=== PATIENT | female | born 1960 | race African-American/Black ===

== ENCOUNTER → 2020-09-05 | Emergency (ER) | payer OTHER ==
[~2020-09-05] VITALS: Ht 162.6 cm; Wt 91.6 kg
[~2020-09-05] MED LIST: PEPCID40 MG PO; ZOFRAN4 MG PO; [UNRECOGNIZED DRUG - OTHER]
== END | disposition home or self-care (01) ==
LOC: ER 01:02
DX: K29.60 Other gastritis without bleeding (principal); Z99.2 Dependence on renal dialysis

== ENCOUNTER 2020-12-05 10:16 | Emergency (ER) | payer OTHER ==
[~2020-12-05] VITALS: Ht 162.6 cm; Wt 91.6 kg
== END 2020-12-05 15:42 | disposition home or self-care (01) ==
LOC: ER 10:16
DX: E11.22 Type 2 diabetes mellitus with diabetic chronic kidney disease (principal); N18.6 End stage renal disease; Z99.2 Dependence on renal dialysis; R11.2 Nausea with vomiting, unspecified

== ENCOUNTER 2021-01-26 09:06 | Emergency (ER) | payer OTHER ==
[~2021-01-26] VITALS: Ht 162.6 cm; Wt 93.0 kg
[2021-01-26] MEDS ORDERED: PROTONIX40 MG PO (09:13)
== END 2021-01-26 15:51 | disposition home or self-care (01) ==
LOC: ER 09:06
DX: K29.70 Gastritis, unspecified, without bleeding (principal)

== ENCOUNTER 2021-01-28 09:14 | Emergency (ER) | payer OTHER ==
[~2021-01-28] VITALS: Ht 162.6 cm; Wt 93.0 kg
[~2021-01-28 09:14] MED LIST changes: +PROTONIX40 MG PO
[2021-01-28] MEDS ORDERED: FOLIC ACID0.8 M1 (09:28)
[2021-01-28] MEDS ORDERED: HUMULIN 70100 UNIT/1 (09:28)
[2021-01-28] MEDS ORDERED: PERCOCET 5-3251 EACH PO (15:12)
== END 2021-01-28 16:23 | disposition home or self-care (01) ==
LOC: ER 09:14
DX: K80.50 Calculus of bile duct without cholangitis or cholecystitis without obstruction (principal); K80.80 Other cholelithiasis without obstruction

== ENCOUNTER 2021-02-16 07:20 | Outpatient (CLI) | payer OTHER ==
[~2021-02-16 07:20] MED LIST changes: +FOLIC ACID0.8 M1; +HUMULIN 70100 UNIT/1; +PERCOCET 5-3251 EACH PO
== END 2021-02-16 07:27 | disposition home or self-care (01) ==
LOC: MRI 07:20
PROVIDERS: ATTEND Internal Medicine
DX: R93.2 Abnormal findings on diagnostic imaging of liver and biliary tract (principal); K80.20 Calculus of gallbladder without cholecystitis without obstruction; R10.9 Unspecified abdominal pain
CPT/HCPCS: 74181

== ENCOUNTER 2021-05-04 18:01 | Emergency (ER) | payer OTHER ==
[~2021-05-04] VITALS: Ht 162.6 cm; Wt 93.4 kg
== END 2021-05-05 11:56 | disposition home or self-care (01) ==
LOC: ER 18:01
DX: K80.50 Calculus of bile duct without cholangitis or cholecystitis without obstruction (principal); K76.0 Fatty (change of) liver, not elsewhere classified; E11.22 Type 2 diabetes mellitus with diabetic chronic kidney disease; N18.6 End stage renal disease; R11.2 Nausea with vomiting, unspecified; R10.13 Epigastric pain; R10.11 Right upper quadrant pain; Z99.2 Dependence on renal dialysis; Z79.4 Long term (current) use of insulin

== ENCOUNTER 2021-09-25 16:47 | Emergency (ER) | payer OTHER ==
[~2021-09-25] VITALS: Ht 162.6 cm; Wt 93.4 kg
[2021-09-25] MEDS ORDERED: METRONIDAZOLE500 MG PO (23:33)
[2021-09-25] MEDS ORDERED: ULTRACET PO (23:33)
[2021-09-25] MEDS ORDERED: CIPRO500 MG PO (23:33)
[2021-09-25] MEDS ORDERED: PEPCID AC20 MG PO (23:33)
== END 2021-09-26 00:58 | disposition home or self-care (01) ==
LOC: ER 16:47
DX: K80.20 Calculus of gallbladder without cholecystitis without obstruction (principal)